=== PATIENT | male | born 1950 | race Caucasian/White ===

== ENCOUNTER 2025-05-31 14:55 | Outpatient (CLI) | payer OTHER, SELFPAY ==
--- NOTE | 2025-05-31 16:00 | CRLHL7_ITS ---
For Patients: As a result of the Century Cures Act, medical imaging exams and procedure reports are released immediately into your electronic medical record. You may view this report before your referring provider. If you have questions, please contact your health care provider. INDICATION: Lung cancer screening. History of smoking. High risk patient with greater than 20 pack-year smoking history. TECHNIQUE: Low-dose lung cancer screening non-contrast CT chest. Dose reduction techniques were used. COMPARISON: None. FINDINGS: NODULES: None. LUNGS AND PLEURA: Marked emphysema. Peripheral reticulation and probable traction bronchiectasis in the lower lungs suggesting interstitial fibrosis. MEDIASTINUM: Normal. CORONARY ARTERY CALCIFICATION: Present. LIMITED UPPER ABDOMEN: Normal. MUSCULOSKELETAL: Acute to subacute posterior right 8th rib fracture. IMPRESSION: 1. Negative for lung cancer screening purposes. 2. Probable interstitial pulmonary fibrosis. Recommend high-resolution chest CT. 3. Emphysema. 4. Coronary atherosclerosis. 5. Posterior right 8th rib fracture. LUNG-RADS CATEGORY 1S: Negative. Potentially significant non lung cancer finding RADIOLOGIST RECOMMENDATIONS: 1. Continue annual screening, if eligible, with low-dose CT chest in 12 months. 2. Diagnostic high-resolution chest CT. Please note that all CT scans at this facility use dose modulation, iterative reconstruction, and/or weight-based dosing when appropriate to reduce radiation dose to as low as reasonably achievable. Dictated by Clifford Cronin MD @ 06/01/2025 11:17:50 AM (Electronically Signed)
== END 2025-05-31 14:56 | disposition home or self-care (01) ==
LOC: CT 14:59
PROVIDERS: PCP Family Medicine; Visit Provider Family Medicine
DX: Z12.2 Encounter for screening for malignant neoplasm of respiratory organs (principal); J43.9 Emphysema, unspecified; J84.10 Pulmonary fibrosis, unspecified; S22.39XD Fracture of one rib, unspecified side, subsequent encounter for fracture with routine healing; I25.10 Atherosclerotic heart disease of native coronary artery without angina pectoris
CPT/HCPCS: 71271

== ENCOUNTER 2025-06-01 13:30 | Outpatient (CLI) | payer OTHER, SELFPAY | END 2025-06-01 13:31 | disposition home or self-care (01) | LOC: NFLDREF 06-09 00:18 | PROVIDERS: PCP Family Medicine; Referring Provider Family Medicine; Visit Provider Family Medicine | DX: E78.5 Hyperlipidemia, unspecified (principal); Z86.39 Personal history of other endocrine, nutritional and metabolic disease | CPT/HCPCS: 80053; 80061; G0103 ==